=== PATIENT | female | born 1995 | race African-American/Black ===

== ENCOUNTER 2016-10-07 15:57 | Emergency (ER) | payer MEDICAID, OTHER ==
[~2016-10-07] VITALS: Ht 157.5 cm; Wt 63.5 kg
[2016-10-07 16:16] VITALS: BP 120/67
[2016-10-07 18:00] LABS: Basophils # (auto) 0 uL; Basophils % (auto) 0.2 % (0.0-2.0); DEFINITIVE VIEW TRANSMISSION; Eosinophils # (auto) 0 uL; Hematocrit 37.2 % (36.0-46.0); Hemoglobin 11.9 g/dL (12.2-16.2); Lymphocytes # (auto) 0.5 uL; Lymphocytes % (auto) 4.7 % (10.0-50.0); Mean Corpuscular Hemoglobin 26.6 pg (28.0-32.0); Mean Corpuscular Hgb Conc. 31.9 g/dL (32.0-36.0); Mean Corpuscular Volume 83.3 fL (80.0-100.0); Mean Platelet Volume 7.8 fL (7.4-10.4); Monocytes # (auto) 0.3 uL; Monocytes % (auto) 2.7 % (0.0-12.0); Neutrophils # (auto) 9.7 uL; Neutrophils % (auto) 92.4 % (37.0-80.0); Platelet Count (auto) 425 10^3/uL (140-450); Red Cell Distribution Width 12.7 % (11.6-16.0); White Blood Cell 10.5 10^3/uL (4.4-10.8)
[2016-10-07 18:24] LABS: Albumin 3.2 g/dL (3.4-5.0); BUN/Creatinine Ratio 12.7; Calcium 9.1 mg/dL (8.5-10.1); Potassium 3.3 mmol/L (3.5-5.1)
[2016-10-07 18:27] LABS: Bilirubin, Total 0.5 mg/dL (0.2-1.0); Total Protein 7.9 g/dL (6.4-8.2)
== END 2016-10-07 19:10 | disposition left against medical advice (07) ==
LOC: ER 15:57
DX: R10.9 Unspecified abdominal pain (principal); R53.1 Weakness; Z53.21 Procedure and treatment not carried out due to patient leaving prior to being seen by health care provider
CPT/HCPCS: 36415; 80053; 85025

== ENCOUNTER 2017-05-24 08:28 | Emergency (ER) | payer MEDICAID ==
[~2017-05-24] VITALS: Ht 157.5 cm; Wt 57.6 kg
[2017-05-24 09:04] LABS: Urine RBC None Seen /hpf (0 - 4)
[2017-05-24 09:12] LABS: Basophils # (auto) 0 uL; Basophils % (auto) 0.3 % (0.0-2.0); Eosinophils # (auto) 0 uL; Hematocrit 38.7 % (36.0-46.0); Hemoglobin 13.1 g/dL (12.2-16.2); Lymphocytes # (auto) 1.5 uL; Lymphocytes % (auto) 24.4 % (10.0-50.0); Mean Corpuscular Hemoglobin 28.4 pg (28.0-32.0); Mean Corpuscular Hgb Conc. 33.9 g/dL (32.0-36.0); Mean Corpuscular Volume 83.8 fL (80.0-100.0); Mean Platelet Volume 7.1 fL (6.9-10.8); Monocytes # (auto) 0.5 uL; Monocytes % (auto) 7.7 % (0.0-12.0); Neutrophils # (auto) 4.2 uL; Neutrophils % (auto) 67.6 % (37.0-80.0); Nucleated Red Blood Cells % 0.2 %; Platelet Count (auto) 336 10^3/uL (140-450); Red Cell Distribution Width 13.2 % (11.8-14.3); White Blood Cell 6.2 10^3/uL (4.4-10.8)
[2017-05-24 09:26] LABS: Urine Bilirubin Negative (Negative); Urine Blood Negative /uL (Negative); Urine Color Yellow (Yellow); Urine Glucose Normal (Normal); Urine Ketone 2+ (Negative); Urine Mucus FEW (None Seen); Urine Nitrite Negative (Negative); Urine Squamous Epithelial Cell FEW /hpf (<5); Urine Urobilinogen Normal (Negative)
[2017-05-24 09:34] LABS: Albumin 4.5 g/dL (3.4-5.0); BUN/Creatinine Ratio 18.2; Calcium 9.8 mg/dL (8.5-10.1); Potassium 3.4 mmol/L (3.5-5.1)
[2017-05-24 09:36] LABS: Bilirubin, Total 0.6 mg/dL (0.2-1.0); Total Protein 8.1 g/dL (6.4-8.2)
[2017-05-24] MEDS ORDERED: SODIUM CHLORIDE 0.9% 1,000 ML IV ONE ×2 (10:10→10:15)
[2017-05-24] MEDS ORDERED: IOHEXOL 300 MG/ML 100ML BOTTLE IJ ONE (10:13)
[2017-05-24] MEDS ORDERED: ONDANSETRON HCL 4 MG/2 ML VIAL IV ONE (10:15)
[2017-05-24 11:09] VITALS: BP 117/81
[2017-05-24] MEDS ORDERED: POTASSIUM CHL 10% (20 MEQ/15ML) 15ml ORAL SOLN PO ONE (11:30)
== END 2017-05-24 14:34 | disposition home or self-care (01) ==
LOC: ER 08:28
DX: R10.13 Epigastric pain (principal); R11.2 Nausea with vomiting, unspecified
CPT/HCPCS: 36415; 74177; 80053; 81001; 81025; 84702; 85025; 96361; 96374; 99285; J2405; Q9967

== ENCOUNTER 2019-02-01 00:55 | Emergency (ER) | payer MEDICAID ==
[~2019-02-01] VITALS: Ht 160 cm; Wt 65.8 kg
[2019-02-01 01:14] VITALS: BP 113/77
[2019-02-01] MEDS ORDERED: IBUPROFEN 600 MG TAB PO ONE (04:15)
== END 2019-02-01 04:45 | disposition home or self-care (01) ==
LOC: ER 00:56
DX: M62.838 Other muscle spasm (principal); M54.2 Cervicalgia; M25.532 Pain in left wrist; M54.6 Pain in thoracic spine; V49.49XA Driver injured in collision with other motor vehicles in traffic accident, initial encounter; Y93.89 Activity, other specified; Y99.8 Other external cause status; Y92.488 Other paved roadways as the place of occurrence of the external cause
CPT/HCPCS: 29125; 71111; 72040

== ENCOUNTER 2019-08-12 11:59 | Emergency (ER) | payer MEDICAID ==
[~2019-08-12] VITALS: Ht 157.5 cm; Wt 61.2 kg
[2019-08-12] MEDS ORDERED: ONDANSETRON ODT 4 MG TAB PO ONE ×2 (16:54→17:00)
[2019-08-12 17:23] VITALS: BP 103/73
== END 2019-08-12 17:24 | disposition left against medical advice (07) ==
LOC: ER 12:16
DX: G43.909 Migraine, unspecified, not intractable, without status migrainosus (principal)
CPT/HCPCS: 99283; Q0162

== ENCOUNTER 2024-11-28 17:19 | Inpatient (IN) | payer MEDICAID, OTHER ==
[~2024-11-28] VITALS: Ht 160 cm; Wt 86.1 kg
[2024-11-28] MEDS: ACETAMINOPHEN 325 MG TAB PO ONE ×2 (17:39→17:43)
--- NOTE | 2024-11-28 17:42 | ED.PDOC ---
Musculoskeletal HPI Comments HPI: 29F started w/ symptoms of N/V, LANDEROS, lower back pain which radiates to the bilateral legs and assumes that it may be due from her having to sit in the car for 8 hours. Pt notes on having a fever today of 100.7 PMHx: Migraine SHx: No Known [place] HPI: Poor Historian. 29-year-old female presents to emergency depart for evaluation of bilateral lumbosacral low back pain that radiates to bilateral lower extremity without any focal deficits or numbness or tingling. 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 She had the pain which was associated with the episode of nausea and vomiting nonbilious nonbloody. Today she noticed that she is febrile. Denies any sick contacts. She does have history of migraines. D enies any active fall or trauma or injury. Past Medical History: Migraines Past Surgical History: REVIEW OF SYSTEMS: CONSTITUTIONAL: Denies acute: , diaphoresis, chills, generalized weakness. HEAD: Denies acute: headache, photophobia Eyes: Denies acute: Double vision, vision loss, eye pain, eye discharge. EARS: Denies acute: tinnitus, hearing loss, ear discharge, ear pain, THROAT: Denies acute: sore throat, swelling, difficulty swallowing , pain with swallowing, change in voice. NECK: Denies acute: neck pain, neck swelling, stiff neck. HEART: Denies acute : chest pain, palpitations, LUNGS: Denies acute: SOB, wheezing, cough, hemoptysis ABDOMEN: Denies acute: abdominal pain, diarrhea, melena , hematemesis, hematochezia SKIN: Denies acute: rash, redness, lesions, itchiness. EXTREMITIES: Denies acute: calf pain, numbness, tingling, weakness, Neuro: Denies acute: focal neurological deficit, motor or sensory focal neurological deficit, tremors, seizure like activity, confusion, dizziness, change in mental status, loss of bowel or bladder function, cauda equina like symptoms. : Denies acute: dysuria, hematuria, flank pain, increase in urinary frequency. PSYCH: Denies acute: hallucination, suicidal ideation, homicidal ideation. FEMALE: Denies acute: abnormal vaginal bleeding, foul odor, unusual discharge. PHYSICAL EXAM: General: ---mild-----acute distress, awake and alert. Head: normocephalic, atraumatic. Neck: supple, trachea is midline, no swelling. Throat: Normal phonation. Eyes:, no erythema, no purulent discharge, no proptosis, no icterus. Heart: regular rate, regular rhythm, no significant murmur appreciated. Lungs: no apparent respiratory distress, Able to speak in full sentences. No wheezing, no rhonchi, no crackles. No stridors Clear to auscultation bilaterally. Abdomen: non tender to palpation, non distended, soft, no guarding, no rebound, + bowel sounds. Neuro: Awake, Alert, oriented to name, self, situation, follows commands GCS=15. Speech is normal. Skin: no petechia, no purpura, no cyanosis, non-pale, not jaundice. Lower extremities: --no - Pitting edema no deformity, no focal swelling, no calf TTP. Makes eye contact. moves all four extremities. Face: no apparent facial droop. No CVA tenderness to percussion bilaterally. Ambulating in the ED independently. Evaluation of the area of pain in her back. Patient points to her bilateral belt distribution in the lumbosacral region in the upper buttock area. No focal deformity or swelling on exam. No nuchal rigidity, Kernig's sign, Brudzinski's sign, no meningeal signs. ED COURSE: Chief Complaint: Lower Extremity Time Seen by MD: 17:35 Primary Care Provider: NONE Reviewed Notes: Nurses Notes, Allergies Allergies: Coded Allergies: NO KNOWN ALLERGIES (Unverified , 10/07/16) Home Meds Active Scripts Nitrofurantoin Monohydrate Mac (Macrobid) 100 Mg Cap, 100 MG PO BID for 7 Days, #14 CAP Prov:SYDNEY WASHBURN DO 11/28/24 Information Source: Patient Location: Bilateral Past Medical History PAST MEDICAL HISTORY: Denies Past Medical History (Other): Migraine Surgical History: Denies all surgeries HAIR COLORIST History: No Pertinent HAIR COLORIST History Family History Family History: Reviewed,noncontributory to illness, Unknown Family History (Other): Mother has history of Migraine Social History Smoker: Non-Smoker Alcohol: Denies ETOH Use Drugs: Denies Drug Use Lives In: Home Was a procedure done? Was a procedure done?: No Differential Diagnosis EXT Differential Diagnosis: Other (DDX INCLUDED BUT NOT LIMITED TO CAUDA EQUINA SYNDROME, LUMBAR RADICULOPATHY, ARTHRITIS, DISK HERNIATION, SCIATICA, MUSCLE STRAIN, EPIDURAL ABSCESS, TRANSVERSE MYELITIS. CORD COMPRESSION, SPINAL FORAMINAL STENOSIS, SPINAL FRACTURES, SPONDYLOSIS, CENTRAL CANAL STENOSIS, TRAUMA, MUSCLE SPRAIN/STRAIN, ANEURYSM/DISSECTION, KIDNEY STONES, SHINGLES, ARTHRITIS, GUILLAN BARRE, NEOPLASM.) X-Ray, Labs, Meds, VS Vital Signs Date Time Temp Pulse Resp B/P (MAP) Pulse Ox O2 Delivery O2 Flow Rate FiO2 11/29/24 07:25 98.0 73 16 117/77 (90) 99 98.0 11/29/24 04:22 98.8 11/29/24 04:20 98.8 78 16 134/72 (92) 98 98.8 11/29/24 00:46 100.5 88 16 136/73 (94) 97 100.5 11/28/24 17:39 100.7 11/28/24 17:30 100.7 20 20 130/79 (96) 97 100.7 Lab Test 11/28/24 17:51 11/28/24 17:30 Range/Units White Blood Count 3.9 L 4.4-10.8 10^3/uL Red Blood Count 4.85 4.0-5.20 10^6/uL Hemoglobin 13.0 12.2-16.2 g/dL Hematocrit 39.7 36.0-46.0 % Mean Corpuscular Volume 82.0 80.0-100.0 fL Mean Corpuscular Hemoglobin 26.8 L 28.0-32.0 pg Mean Corpuscular Hemoglobin Concent 32.7 32.0-36.0 g/dL Red Cell Distribution Width 13.6 11.8-14.3 % Platelet Count 288 140-450 10^3/uL Mean Platelet Volume 7.7 6.9-10.8 fL Neutrophils (%) (Auto) 37.0-80.0 % Lymphocytes (%) (Auto) 10.0-50.0 % Monocytes (%) (Auto) 0.0-12.0 % Basophils (%) (Auto) 0.0-2.0 % Neutrophils # (Auto) 1.6-8.6 10 ^3/uL Lymphocytes # (Auto) 0.4-5.4 10 ^3/uL Monocytes # (Auto) 0-1.3 10 ^3/uL Differential Total Cells Counted 100.0 100 Neutrophils % (Manual) 64 37.0-80.0 Band Neutrophils % (Manual) 1 Lymphocytes % (Manual) 14 10.0-50.0 Monocytes % (Manual) 21 H 0-12 Eosinophils % (Manual) 0 0-7 Basophils % (Manual) 0 0.0-2.0 Metamyelocytes % (manual) 0 Myelocytes % (Manual) 0 Promyelocytes % (Manual) 0 Blast Cells % (Manual) 0 Reactive Lymphocytes 0 Platelet Estimate Adequate Red Blood Cell Morphology Normal Erythrocyte Sedimentation Rate 15 0-20 mm/hr Sodium Level 135 L 136-145 mmol/L Potassium Level 3.6 3.5-5.1 mmol/L Chloride Level 104 98-107 mmol/L Carbon Dioxide Level 23 20-31 mmol/L Anion Gap 8 5-15 Blood Urea Nitrogen 11 9-23 mg/dL Creatinine 0.85 0.550-1.02 mg/dL Glomerular Filtration Rate Calc 94 >90 mL/min BUN/Creatinine Ratio 12.9 10.0-20.0 Serum Glucose 90 74-106 mg/dL Lactic Acid Level 1.1 0.4-2.0 mmol/L Calcium Level 10.5 H 8.7-10.4 mg/dL Magnesium Level 2.0 1.6-2.6 mg/dL Total Bilirubin 0.3 0.2-1.0 mg/dL Aspartate Amino Transferase (AST) 13 13-40 U/L Alanine Aminotransferase (ALT) 12 7-40 U/L Alkaline Phosphatase 76 46-116 U/L Creatine Kinase 115 34-145 U/L C-Reactive Protein High Sensitivity 0.70 <1.0 mg/dL Total Protein 8.7 H 5.7-8.2 g/dL Albumin 5.4 H 3.2-4.8 g/dL Urine Color Yellow Yellow Urine Clarity Turbid H Clear Urine pH 6.0 5.0-9.0 Urine Specific [place] 1.037 H 1.001-1.035 Urine Protein 1+ H Negative Urine Ketones 2+ H Negative Urine Blood 3+ H Negative /uL Urine Nitrite Negative Negative Urine Bilirubin Negative Negative Urine Urobilinogen Normal Negative mg/dL Urine Leukocyte Esterase Negative Negative /uL Urine RBC 27 0 - 4 /hpf Urine Microscopic WBC 6 H 0-5 /HPF Urine Squamous Epithelial Cells Few <5 /hpf Urine Bacteria Few H None Seen /hpf Urine Mucus Few None Seen Urine Glucose Normal Normal mg/dL Urine Test Negative Negative Microbiology Date/Time Source Procedure Growth Status 11/28/24 17:51 Blood Blood Culture - Preliminary NO GROWTH AFTER 24 HOURS OF INCUBATION. Resulted 11/28/24 17:40 Blood Blood Culture - Preliminary NO GROWTH AFTER 24 HOURS OF INCUBATION. Resulted Current Medications Medications (Trade) Dose Ordered Sig/Tabitha Route Start Time Stop Time Status Last Admin Sodium Chloride 1,000 ml @ 1,000 mls/hr Q1H ONCE IV 11/29/24 01:00 11/29/24 01:59 DC 11/29/24 01:00 Time of 1ST Reevaluation: 18:05 Reevaluation 1ST: Unchanged Patient Education/Counseling: Diagnosis, Treatment Family Education/Counseling: No Family Present Comments Patient refused all swabs for influenza and COVID. Patient presented with the above HPI.----low back pain and fever--workup was ini tiated. patient was found with the above mentioned diagnosis. the following medications were ordered: please refer to order lists of meds and tests obtained by myself Dr. Washburn. Patient ED course and VS have been stabilized. Patient has been reassessed in the ED and remained in a stable condition. Pertinent incidental findings were discussed with the patient and/or family. Patient/family voices understanding and is agreeable with plan. Patient has been observed in the ED adequate length of time to insure improvement/stability. Escalation of care considered: Consideration of escalation to observation or admission Patient Was found with UTI. Antibiotics initiated. Patient was ADMITTED to the medicine team for further evaluation and treatment of their presentation. All the reports of any imaging studies that were ordered by myself were reviewed by myself. Departure 1 Departure Time of Disposition: 22:59 Impression: Primary Impression: Low back pain Additional Impressions: UTI (urinary tract infection) Radiculopathy Fever Disposition: ADMITTED INPATIENT Admit to: Tele Condition: Guarded Additional Instructions: e-Prescriptions Nitrofurantoin Monohydrate Mac (Macrobid) 100 Mg Cap 100 MG PO BID for 7 Days, #14 CAP Prov: SYDNEY WASHBURN DO 11/28/24 Discharged With: Self Critical Care Note Critical Care Time?: Yes (35 min-critical care time only) I personally scribed for SYDNEY WASHBURN DO ([email or web address]) on 11/28/24 at 17:42. Electronically submitted by Jaswinder Juarez ([email or web address]). SYDNEY WASHBURN DO Nov 28, 2024 17:42
[2024-11-28] MEDS: ONDANSETRON HCL 4 MG/2 ML VIAL IV ONE (17:45)
[2024-11-28] MEDS: SODIUM CHLORIDE 0.9% 1,000 ML IV ONE (17:45)
[2024-11-28 18:20] LABS: Mean Corpuscular Hgb Conc. 32.7 g/dL (32.0-36.0)
[2024-11-28 18:22] LABS: Hematocrit 39.7 % (36.0-46.0); Mean Corpuscular Hemoglobin 26.8 pg (28.0-32.0); Platelet Count (auto) 288 10^3/uL (140-450); Red Blood Cells 4.85 10^6/uL (4.0-5.20); Red Cell Distribution Width 13.6 % (11.8-14.3); White Blood Cell 3.9 10^3/uL (4.4-10.8)
[2024-11-28 18:36] LABS: Alkaline Phosphatase 76 U/L (46-116); Anion Gap 8 (5-15); Aspartate Aminotransferase 13 U/L (13-40); BUN/Creatinine Ratio 12.9 (10.0-20.0); Blood Urea Nitrogen 11 mg/dL (9-23); Carbon Dioxide 23 mmol/L (20-31); Chloride 104 mmol/L (98-107); Creatine Kinase IFCC 115 U/L (34-145); Glucose 90 mg/dL (74-106); Potassium 3.6 mmol/L (3.5-5.1)
[2024-11-28 18:37] LABS: Bilirubin, Total 0.3 mg/dL (0.2-1.0)
[2024-11-28 18:57] LABS: Basophils % (manual) 0 (0.0-2.0); Blast Cells 0; Eosinophils % (manual) 0 (0-7); Metamyelocytes % 0; Myelocytes % 0; Promyelocytes % 0; Reactive Lymphocytes 0
[2024-11-28 19:04] LABS: Albumin 5.4 g/dL (3.2-4.8); Calcium 10.5 mg/dL (8.7-10.4); Sodium 135 mmol/L (136-145); Total Protein 8.7 g/dL (5.7-8.2)
[2024-11-28 19:19] LABS: Urine Bacteria FEW /hpf (None Seen); Urine Blood 3+ /uL (Negative); Urine Clarity Turbid (Clear); Urine Color Yellow (Yellow); Urine Mucus FEW (None Seen); Urine Protein, UAD 1+ (Negative); Urine Specific Gravity 1.037 (1.001-1.035); Urine Squamous Epithelial Cell FEW /hpf (<5); Urine Urobilinogen Normal (Negative); Urine WBC 6 /HPF (0-5)
[2024-11-28 19:23] LABS: Alanine Aminotransferase 12 U/L (7-40)
[2024-11-28 19:43] LABS: Erythrocyte Sedimentation Rate 15 mm/hr (0-20)
--- NOTE | 2024-11-28 19:48 | DVH ---
CHEST RADIOGRAPH Indication: fever Technique: Single frontal view of the chest was obtained Comparison: None FINDINGS: Lines and Tubes: None Lungs: No focal consolidation. Pleura: No effusion. No pneumothorax. Cardiomediastinal contours: Unremarkable Bones: No acute osseous abnormality. IMPRESSION: 1. No acute cardiopulmonary disease. HS:Y
[2024-11-28 19:59] LABS: Band Neutrophils % (manual) 1; Lymphocytes % (manual) 14 (10.0-50.0); Monocytes % (manual) 21 (0-12); Platelet Estimate Adequate; RBC Morphology Normal
[2024-11-28] MEDS ORDERED: NITR-87 PO (23:00)
[2024-11-29] MEDS: KETOROLAC TROMETH 30 MG/ML 1ML VIAL IV ONE (00:52)
[2024-11-29] MEDS: cefTRIAXone 1GM/50ML D5W 50 ML IV ONE (00:52)
[2024-11-29] MEDS: predniSONE 20 MG TAB PO ONE (00:53)
[2024-11-29] MEDS: SODIUM CHLORIDE 0.9% 1,000 ML IV ONE (01:00)
[2024-11-29] MEDS: IOHEXOL 300 MG/ML 100ML BOTTLE IJ ONE (01:11)
--- NOTE | 2024-11-29 01:57 | DVH ---
CLINICAL HISTORY: low back pain, TECHNIQUE: CT of the abdomen and pelvis was performed with intravenous contrast. This exam was perfor med according to our departmental dose optimization program. Up-to-date CT equipment and radiation do se reduction techniques are utilized as appropriate. 100 ML Omnipaque 300 injected CTDIVol: 12.18 mGy DLP: 6084.28 mGy-cm WID: COMPARISON: None FINDINGS: Lower Thorax: Small hiatal hernia. Otherwise unremarkable Liver and Biliary system: Unremarkable. Spleen: Unremarkable. Adrenal Glands and Kidneys: Unremarkable adrenal glands. Tiny hypodensity in the in both kidneys whi ch are too small to characterize though may reflect cysts. No hydronephrosis or nephrolithiasis. Pancreas and Retroperitoneum: Unremarkable. Aorta and Major Vessels: Unremarkable. Bowel, Mesentery and Peritoneal space: Normal appendix. Normal caliber small and large bowel. No free air or fluid collection. Pelvis: Unremarkable. Abdominal wall and Osseous Structures: No destructive osseous lesion. IMPRESSION: 1. No acute abnormality. 2. Small hiatal hernia.
[2024-11-29] MEDS ORDERED: ACETAMINOPHEN 325 MG TAB PO PRN (07:45)
[2024-11-29] MEDS ORDERED: ONDANSETRON HCL 4 MG/2 ML VIAL IV PRN (07:45)
--- NOTE | 2024-11-29 08:09 | DVHHP2 ---
History of Present Illness Reason for Visit: Back pain History of Present Illness Tess Douglas is a 29-year-old female with past medical history of migraine who presents to the ED with back pain, nausea, vomiting, headache, and bilateral lower extremity pain x2 days. 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 She states that the back pain is similar to sciatic pain that she had before. Patient denies any chest pain, shortness of breath, abdominal pain, diarrhea, recent trauma or injury, recent sick contacts, recent travels, lightheadedness, weakness, or dizziness. Past Medical History Migraine Past Surgical History: None Family History: Cancer, Other (Mom with lung cancer) Smoke: No ALCOHOL: none Drugs: Marijuana Lives: with Family Domestic Violence: Neg Review of Systems Musculoskeletal: back pain, leg pain Allergies: Coded Allergies: NO KNOWN ALLERGIES (Unverified , 10/07/16) Medications Current Medications Medications Dose Ordered Sig/Tabitha Route Start Time Stop Time Status Last Admin Dose Admin Ceftriaxone Sodium 50 ml @ 100 mls/hr DAILY@09 IV 11/29/24 09:00 UNV Acetaminophen/ Hydrocodone Bitart 1 tab Q4HP PRN PO 11/29/24 07:45 UNV Ondansetron HCl 4 mg Q4HP PRN IV 11/29/24 07:45 UNV Acetaminophen 650 mg Q6HP PRN PO 11/29/24 07:45 UNV Morphine Sulfate 2 mg Q4HPRN PRN IV 11/29/24 07:45 UNV Exam Vital Signs Vital Signs Date Time Temp Pulse Resp B/P (MAP) Pulse Ox O2 Delivery O2 Flow Rate FiO2 11/29/24 07:25 98.0 73 16 117/77 (90) 99 98.0 General Appearance: Alert, Oriented X3, Cooperative, No acute distress HEENT: Atraumatic, PERRLA, EOMI, Mucous membr. moist/pink Respiratory: Clear to auscultation, Normal air movement Cardiovascular: Regular rate, Normal S1, Normal S2, No murmurs Abdominal: Normal bowel sounds, Soft, No tenderness, No hepatospenomegaly, No masses Extremities: No clubbing, No cyanosis, No edema, Normal pulses, No tenderness/swelling Skin: No rashes, No breakdown, No significant lesion Neuro: Normal gait, Normal speech, Strength at 5/5 X4 ext, Normal tone, Sensation intact Psych/Mental Status: Mental status NL, Mood NL Labs/Xrays Labs Test 11/28/24 17:51 11/28/24 17:30 Range/Units White Blood Count 3.9 L 4.4-10.8 10^3/uL Red Blood Count 4.85 4.0-5.20 10^6/uL Hemoglobin 13.0 12.2-16.2 g/dL Hematocrit 39.7 36.0-46.0 % Mean Corpuscular Volume 82.0 80.0-100.0 fL Mean Corpuscular Hemoglobin 26.8 L 28.0-32.0 pg Mean Corpuscular Hemoglobin Concent 32.7 32.0-36.0 g/dL Red Cell Distribution Width 13.6 11.8-14.3 % Platelet Count 288 140-450 10^3/uL Mean Platelet Volume 7.7 6.9-10.8 fL Neutrophils (%) (Auto) 37.0-80.0 % Lymphocytes (%) (Auto) 10.0-50.0 % Monocytes (%) (Auto) 0.0-12.0 % Basophils (%) (Auto) 0.0-2.0 % Neutrophils # (Auto) 1.6-8.6 10 ^3/uL Lymphocytes # (Auto) 0.4-5.4 10 ^3/uL Monocytes # (Auto) 0-1.3 10 ^3/uL Differential Total Cells Counted 100.0 100 Neutrophils % (Manual) 64 37.0-80.0 Band Neutrophils % (Manual) 1 Lymphocytes % (Manual) 14 10.0-50.0 Monocytes % (Manual) 21 H 0-12 Eosinophils % (Manual) 0 0-7 Basophils % (Manual) 0 0.0-2.0 Metamyelocytes % (manual) 0 Myelocytes % (Manual) 0 Promyelocytes % (Manual) 0 Blast Cells % (Manual) 0 Reactive Lymphocytes 0 Platelet Estimate Adequate Red Blood Cell Morphology Normal Erythrocyte Sedimentation Rate 15 0-20 mm/hr Sodium Level 135 L 136-145 mmol/L Potassium Level 3.6 3.5-5.1 mmol/L Chloride Level 104 98-107 mmol/L Carbon Dioxide Level 23 20-31 mmol/L Anion Gap 8 5-15 Blood Urea Nitrogen 11 9-23 mg/dL Creatinine 0.85 0.550-1.02 mg/dL Glomerular Filtration Rate Calc 94 >90 mL/min BUN/Creatinine Ratio 12.9 10.0-20.0 Serum Glucose 90 74-106 mg/dL Lactic Acid Level 1.1 0.4-2.0 mmol/L Calcium Level 10.5 H 8.7-10.4 mg/dL Magnesium Level 2.0 1.6-2.6 mg/dL Total Bilirubin 0.3 0.2-1.0 mg/dL Aspartate Amino Transferase (AST) 13 13-40 U/L Alanine Aminotransferase (ALT) 12 7-40 U/L Alkaline Phosphatase 76 46-116 U/L Creatine Kinase 115 34-145 U/L Total Protein 8.7 H 5.7-8.2 g/dL Albumin 5.4 H 3.2-4.8 g/dL Urine Color Yellow Yellow Urine Clarity Turbid H Clear Urine pH 6.0 5.0-9.0 Urine Specific [place] 1.037 H 1.001-1.035 Urine Protein 1+ H Negative Urine Ketones 2+ H Negative Urine Blood 3+ H Negative /uL Urine Nitrite Negative Negative Urine Bilirubin Negative Negative Urine Urobilinogen Normal Negative mg/dL Urine Leukocyte Esterase Negative Negative /uL Urine RBC 27 0 - 4 /hpf Urine Microscopic WBC 6 H 0-5 /HPF Urine Squamous Epithelial Cells Few <5 /hpf Urine Bacteria Few H None Seen /hpf Urine Mucus Few None Seen Urine Glucose Normal Normal mg/dL Urine Test Negative Negative MRI LUMBAR SPINE WO CONTRAST INDICATION: r/o spinal stenosis : 29 old Female r/o spinal stenosis EXAM DATE: 11/29/2024 01:54 PM COMPARISON: 11/29/24 PROCEDURE: Using a 1.5 Cee scanner, multisequence multiplanar imaging of the lumbar spine was obtained. FINDINGS: There are five lumbar vertebral segments. The lumbar spine shows anatomic alignment with preservation of vertebral body heights. The marrow signal is homogeneous. The intervertebral discs appear normal in height and signal. The distal spinal cord is normal in signal and morphology and the conus medullaris terminates at . The paraspinal soft tissues are normal. On axial images: the posterior disc margin, thecal sac, neural foramina, and facet joints appear normal. IMPRESSION: Minimal L5-S1 disc space narrowing; otherwise normal MRI findings of the lumbar spine. INDICATION: back pain COMPARISON: None TECHNIQUE: 2 views of the lumbar spine were obtained. FINDINGS: The lumbar vertebral alignment is normal. The intervertebral disc spaces are well-maintained. No significant facet arthropathy is noted. No acute fracture, vertebral compression deformity or aggressive osseous lesions. The paravertebral soft tissues are grossly unremarkable. IMPRESSION: No acute fracture. US BiLat Lower DVT HISTORY: pain COMPARISON: None TECHNIQUE: Duplex Doppler evaluation of the deep venous system of the lower extremity from the common femoral veins, superficial femoral vein, great saphenous vein, deep femoral vein, popliteal vein, and calf veins, including color Doppler and spectral/pulsed waveform analysis, was performed. FINDINGS: Right: - Common femoral vein: Compressible - Deep femoral vein: Compressible - Femoral vein: Compressible - Popliteal vein: Compressible - Posterior tibial vein: Waveforms present - Other: Nothing Left: - Common femoral vein: Compressible - Deep femoral vein: Compressible - Femoral vein: Compressible - Popliteal vein: Compressible - Posterior tibial vein: Waveforms present - Other: Nothing IMPRESSION: No right or left lower extremity deep venous thrombosis. CLINICAL HISTORY: low back pain, TECHNIQUE: CT of the abdomen and pelvis was performed with intravenous contrast. This exam was performed according to our departmental dose optimization program. Up-to-date CT equipment and radiation dose reduction techniques are utilized as appropriate. 100 ML Omnipaque 300 injected CTDIVol: 12.18 mGy DLP: 6084.28 mGy-cm WID: COMPARISON: None FINDINGS: Lower Thorax: Small hiatal hernia. Otherwise unremarkable Liver and Biliary system: Unremarkable. Spleen: Unremarkable. Adrenal Glands and Kidneys: Unremarkable adrenal glands. Tiny hypodensity in the in both kidneys which are too small to characterize though may reflect cysts. No hydronephrosis or nephrolithiasis. Pancreas and Retroperitoneum: Unremarkable. Aorta and Major Vessels: Unremarkable. Bowel, Mesentery and Peritoneal space: Normal appendix. Normal caliber small and large bowel. No free air or fluid collection. Pelvis: Unremarkable. Abdominal wall and Osseous Structures: No destructive osseous lesion. IMPRESSION: 1. No acute abnormality. 2. Small hiatal hernia. CHEST RADIOGRAPH Indication: fever Technique: Single frontal view of the chest was obtained Comparison: None FINDINGS: Lines and Tubes: None Lungs: No focal consolidation. Pleura: No effusion. No pneumothorax. Cardiomediastinal contours: Unremarkable Bones: No acute osseous abnormality. IMPRESSION: 1. No acute cardiopulmonary disease. Assessment/Plan Assessment/Plan Assessment Intractable back pain Intractable nausea vomiting and headache Small hiatal hernia History of migraine Plan Admit to [facility] Chest x-ray noted HCG UA NS 2 L given ED Pain management Antiemetics IV antibiotics-ceftriaxone Antipyretics CT abdomen pelvis Mag level CK Lactic level ESR CRP Ultrasound bilateral lower extremity venous SCDs X-ray lumbar spine MRI lumbar spine Per patient she does not take medications at home DVT prophylaxis-SCDs PUD prophylaxis-not indicated no history of GERD or GI bleed Discussed plan of care with patient nurse Plan discussed with: Patient My Orders Orders - SHANITA FLOREZP Procedure Category Date Status Time Ceftriaxone 1gm/50ml PHA 11/29/24 Logged D5w (Rocephin) 09:00 Admit ADMIT 11/29/24 Transmitted 07:42 Allergies DAGOBERTO 11/29/24 In Process 07:42 Code Status CODE 11/29/24 Transmitted 07:42 Hydrocodone-Acet PHA 11/29/24 Logged 5/325mg Tab ([place] 07:45 Ondansetron Hcl PHA 11/29/24 Logged (Zofran) 07:45 Complete Blood Count LAB 11/30/24 Verified 04:00 Comprehensive LAB 11/30/24 Verified Metabolic Panel 04:00 Cardiac DIET 11/29/24 Transmitted Diet-2gna,Lofat,Lochol Breakfast Acetaminophen Tablet PHA 11/29/24 Logged (Tylenol Tablet) 07:45 Morphine Sulfate PHA 11/29/24 Logged Injection 07:45 Sequential DAGOBERTO 11/29/24 In Process Compression Device Date of Service: Nov 29, 2024 Billing Provider: SHANITA FLOREZ Common Visit Codes: 44845-[id number] INP/OBS CARE (HIGH) SHANITA FLOREZ Nov 29, 2024 08:09
--- NOTE | 2024-11-29 08:36 | DVH ---
INDICATION: back pain COMPARISON: None TECHNIQUE: 2 views of the lumbar spine were obtained. FINDINGS: The lumbar vertebral alignment is normal. The intervertebral disc spaces are well-maintained. No significant facet arthropathy is noted. No acute fracture, vertebral compression deformity or aggressive osseous lesions. The paravertebral soft tissues are grossly unremarkable. IMPRESSION: No acute fracture.
[2024-11-29] MEDS: MORPHINE SULFATE INJ 2 MG/ml SYRG IV PRN (08:41)
--- NOTE | 2024-11-29 08:48 | DVH ---
US BiLat Lower DVT HISTORY: pain COMPARISON: None TECHNIQUE: Duplex Doppler evaluation of the deep venous system of the lower extremity from the common femoral veins, superficial femoral vein, great saphenous vein, deep femoral vein, popliteal vein, an d calf veins, including color Doppler and spectral/pulsed waveform analysis, was performed. FINDINGS: Right: - Common femoral vein: Compressible - Deep femoral vein: Compressible - Femoral vein: Compressible - Popliteal vein: Compressible - Posterior tibial vein: Waveforms present - Other: Nothing Left: - Common femoral vein: Compressible - Deep femoral vein: Compressible - Femoral vein: Compressible - Popliteal vein: Compressible - Posterior tibial vein: Waveforms present - Other: Nothing IMPRESSION: No right or left lower extremity deep venous thrombosis.
[2024-11-29] MEDS: cefTRIAXone 1GM/50ML D5W 50 ML IV SCH (09:27)
[2024-11-29] MEDS: HYDROcodone-ACET 5/325MG TAB PO PRN (11:56)
[2024-11-29 13:05] VITALS: BP 118/68; PULSE 67; RESP 16; TEMP 98.6; O2SAT 98
[2024-11-29 13:46] VITALS: BP 118/68; PULSE 67; RESP 16; TEMP 98.6; O2SAT 98
--- NOTE | 2024-11-29 14:36 | DVH ---
MRI LUMBAR SPINE WO CONTRAST INDICATION: r/o spinal stenosis : 29 old Female r/o spinal stenosis EXAM DATE: 11/29/2024 01:54 PM COMPARISON: 11/29/24 PROCEDURE: Using a 1.5 Cee scanner, multisequence multiplanar imaging of the lumbar spine was obtai luzmaria. FINDINGS: There are five lumbar vertebral segments. The lumbar spine shows anatomic alignment with pr eservation of vertebral body heights. The marrow signal is homogeneous. The intervertebral discs appe ar normal in height and signal. The distal spinal cord is normal in signal and morphology and the con us medullaris terminates at . The paraspinal soft tissues are normal. On axial images: the posterior disc margin, thecal sac, neural foramina, and facet joints appear nor mal. IMPRESSION: Minimal L5-S1 disc space narrowing; otherwise normal MRI findings of the lumbar spine.
[2024-11-29] MEDS ORDERED: CYCLOBENZAPRINE HCL 10 MG TAB PO PRN (16:45)
[2024-11-29 17:02] VITALS: BP 122/76; PULSE 67; RESP 18; TEMP 98.3; O2SAT 100
[2024-11-29] MEDS: HYDROMORPHONE HCL 1 MG/ML INJ IV PRN (17:20)
[2024-11-29] MEDS: GABAPENTIN 100 MG CAP PO SCH (20:55)
[2024-11-29 21:00] VITALS: BP 143/107; PULSE 73; RESP 16; TEMP 98; O2SAT 99
[2024-11-29 21:35] VITALS: BP 117/78; PULSE 71; RESP 20; TEMP 98.6; O2SAT 97
[2024-11-30] VITALS (7 sets, daily range): BP systolic 108–132; BP diastolic 74–85; PULSE 70–90; RESP 16–20; TEMP 97.9–99.3; O2SAT 98–100
[2024-11-30 05:46] LABS: Hematocrit 34.3 % (36.0-46.0); Hemoglobin 11.5 g/dL (12.2-16.2); Mean Corpuscular Hemoglobin 27.4 pg (28.0-32.0); Mean Corpuscular Hgb Conc. 33.6 g/dL (32.0-36.0); Mean Corpuscular Volume 81.8 fL (80.0-100.0); Platelet Count (auto) 244 10^3/uL (140-450); Red Cell Distribution Width 13.7 % (11.8-14.3); White Blood Cell 3.9 10^3/uL (4.4-10.8)
[2024-11-30 05:52] LABS: Band Neutrophils % (manual) 0
[2024-11-30 05:53] LABS: Basophils % (manual) 0 (0.0-2.0); Blast Cells 0; Eosinophils % (manual) 0 (0-7); Metamyelocytes % 0; Myelocytes % 0; Promyelocytes % 0; Reactive Lymphocytes 0
[2024-11-30 06:21] LABS: Alanine Aminotransferase 10 U/L (7-40); Albumin 4.1 g/dL (3.2-4.8); Alkaline Phosphatase 59 U/L (46-116); Anion Gap 6 (5-15); Aspartate Aminotransferase 16 U/L (13-40); BUN/Creatinine Ratio 9.6 (10.0-20.0); Calcium 8.9 mg/dL (8.7-10.4); Carbon Dioxide 26 mmol/L (20-31); Chloride 104 mmol/L (98-107); Glucose 86 mg/dL (74-106); Sodium 136 mmol/L (136-145); Total Protein 6.8 g/dL (5.7-8.2)
[2024-11-30 06:27] LABS: Bilirubin, Total 0.2 mg/dL (0.2-1.0); Blood Urea Nitrogen 8 mg/dL (9-23); Potassium 3.5 mmol/L (3.5-5.1)
[2024-11-30 06:59] LABS: Lymphocytes % (manual) 76 (10.0-50.0); Monocytes % (manual) 11 (0-12)
[2024-11-30 07:00] LABS: Platelet Estimate Adequate
[2024-11-30] MEDS ORDERED: CYCL-611 PO (12:06)
[2024-11-30] MEDS ORDERED: PRED10TA PO (12:06)
[2024-11-30] MEDS ORDERED: HYDR-4902 PO (12:06)
[2024-11-30] MEDS ORDERED: GAB100C PO (12:06)
--- NOTE | 2024-11-30 12:12 | DVHDS2 ---
Discharge Summary Date of Admission Nov 29, 2024 at 07:42 Date of Discharge: Nov 30, 2024 Admitting Diagnosis Intractable back pain Intractable nausea vomiting and headache Small hiatal hernia History of migraine Labs/Diagnostic Data: Laboratory Results Test 11/30/24 05:17 11/28/24 17:51 11/28/24 17:30 White Blood Count 3.9 10^3/uL (4.4-10.8) Red Blood Count 4.20 10^6/uL (4.0-5.20) Hemoglobin 11.5 g/dL (12.2-16.2) Hematocrit 34.3 % (36.0-46.0) Mean Corpuscular Volume 81.8 fL (80.0-100.0) Mean Corpuscular Hemoglobin 27.4 pg (28.0-32.0) Mean Corpuscular Hemoglobin Concent 33.6 g/dL (32.0-36.0) Red Cell Distribution Width 13.7 % (11.8-14.3) Platelet Count 244 10^3/uL (140-450) Mean Platelet Volume 7.5 fL (6.9-10.8) Neutrophils (%) (Auto) % (37.0-80.0) Lymphocytes (%) (Auto) % (10.0-50.0) Monocytes (%) (Auto) % (0.0-12.0) Basophils (%) (Auto) % (0.0-2.0) Neutrophils # (Auto) 10 ^3/uL (1.6-8.6) Lymphocytes # (Auto) 10 ^3/uL (0.4-5.4) Monocytes # (Auto) 10 ^3/uL (0-1.3) Differential Total Cells Counted 100.0 (100) Neutrophils % (Manual) 13 (37.0-80.0) Band Neutrophils % (Manual) 0 Lymphocytes % (Manual) 76 (10.0-50.0) Monocytes % (Manual) 11 (0-12) Eosinophils % (Manual) 0 (0-7) Basophils % (Manual) 0 (0.0-2.0) Metamyelocytes % (manual) 0 Myelocytes % (Manual) 0 Promyelocytes % (Manual) 0 Blast Cells % (Manual) 0 Nucleated Red Blood Cells 1.0 % Reactive Lymphocytes 0 Platelet Estimate Adequate Sodium Level 136 mmol/L (136-145) Potassium Level 3.5 mmol/L (3.5-5.1) Chloride Level 104 mmol/L (98-107) Carbon Dioxide Level 26 mmol/L (20-31) Anion Gap 6 (5-15) Blood Urea Nitrogen 8 mg/dL (9-23) Creatinine 0.83 mg/dL (0.550-1.02) Glomerular Filtration Rate Calc 97 mL/min (>90) BUN/Creatinine Ratio 9.6 (10.0-20.0) Serum Glucose 86 mg/dL (74-106) Calcium Level 8.9 mg/dL (8.7-10.4) Total Bilirubin 0.2 mg/dL (0.2-1.0) Aspartate Amino Transferase (AST) 16 U/L (13-40) Alanine Aminotransferase (ALT) 10 U/L (7-40) Alkaline Phosphatase 59 U/L (46-116) Total Protein 6.8 g/dL (5.7-8.2) Albumin 4.1 g/dL (3.2-4.8) Red Blood Cell Morphology Normal Erythrocyte Sedimentation Rate 15 mm/hr (0-20) Lactic Acid Level 1.1 mmol/L (0.4-2.0) Magnesium Level 2.0 mg/dL (1.6-2.6) Creatine Kinase 115 U/L (34-145) C-Reactive Protein High Sensitivity 0.70 mg/dL (<1.0) Urine Color Yellow (Yellow) Urine Clarity Turbid (Clear) Urine pH 6.0 (5.0-9.0) Urine Specific [place] 1.037 (1.001-1.035) Urine Protein 1+ (Negative) Urine Ketones 2+ (Negative) Urine Blood 3+ /uL (Negative) Urine Nitrite Negative (Negative) Urine Bilirubin Negative (Negative) Urine Urobilinogen Normal mg/dL (Negative) Urine Leukocyte Esterase Negative /uL (Negative) Urine RBC 27 /hpf (0 - 4) Urine Microscopic WBC 6 /HPF (0-5) Urine Squamous Epithelial Cells Few /hpf (<5) Urine Bacteria Few /hpf (None Seen) Urine Mucus Few (None Seen) Urine Glucose Normal mg/dL (Normal) Urine Test Negative (Negative) Other Laboratory Tests 11/30/24 05:17 Brief Hx & Hospital Course: This is a 29 years old female who is obese and 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 She started experience severe back pain radiating to her back and her leg. The patient was admitted. MRI of the lumbar spine showed Minimal L5-S1 disc space narrowing; otherwise normal MRI findings of the lumbar spine. The patient was started on prednisone, pain medication, muscle relaxants. The patient is subsequently feel better. Back pain improved. I advised the patient not sitting too long in her car but can be get up and walk around if she can every 1 hour when she sits in the car. Advised the patient to follow up with primary care physician 1-2 weeks. If her back pain still the problem she should see a spine surgeon to evaluate as outpatient. Also recommend the patient to do stretching in physical therapy as needed. Follow up with primary care physician 1-2 weeks. Activity as tolerated. Diet per home diet. Also advised her to lose weight to help with the back pain. Physical exam: HEENT: Normocephalic atraumatic pupils equal react to light and accommodation. Extraocular muscles intact, conjunctiva pink, oropharynx moist, no thrush, no exudate. Lymphatic: No lymphadenopathy Cardiovascular exam: S1, S2 was heard. No murmurs, rubs, gallops Lung: Clear on auscultation bilaterally, no wheeze, rale, rhonchi. GI: Abdominal soft, nondistended, nontenderness, positive bowel sounds. Extremity: No crepitus, cyanosis, edema. Pedal pulses present bilateral. Full range of motion. Skin: Normal turgor, no rash. Psych: Alert, oriented x3. Neurology: No focal deficits, cranial nerve II to XII grossly intact. This medical document was created using an electronic medical record system with [employer] direct computerized dictation system. Although this document has been carefully reviewed, there may still be some phonetic and typographical errors. These areas are purely typographical due to imperfections of the software programs, and do not reflect any compromise in the patient's medical care. Condition at Discharge: Stable Final Diagnosis/Problems List Intractable back pain Intractable nausea vomiting and headache Small hiatal hernia History of migraine Discharge Disposition: Home Discharge Instruct/Medications Diet: Regular Activity: No Restrictions, As Tolerated Follow Up/Referral: pcp 1-2 weeks Medications: see med lists Discharge Statement: "Patient was advised to return to the ER or call 911 if any headaches, dizziness, shortness of breath, chest pain, abdominal pain, bleeding, fevers, or worsening of medical condition. Patient was counseled about treatment plan, medications, possible side effects, patientverbalized understanding. All questions were answered to the best of my ability. This discharge took greater then 30 minutes in planning, reviewing documentation, counseling the patient, and discussing with other team members." ASSESSMENT ASSESSMENT Assessment back pain Date of Service: Nov 30, 2024 Billing Provider: ELIGIO JACOBO MD Common Visit Codes: 53745-PGC/OBS DISCH DAY >30min ELIGIO JACOBO MD Nov 30, 2024 12:12
== END 2024-11-30 14:30 | disposition home or self-care (01) | DRG 347 ==
LOC: ER 17:19 → OVERFLOW 11-29 07:42 → ER 11-29 07:47 → EAST 11-29 21:35
PROVIDERS: ADMIT Internal Medicine; ATTEND Internal Medicine
DX: M54.17 Radiculopathy, lumbosacral region (principal); R65.10 Systemic inflammatory response syndrome (SIRS) of non-infectious origin without acute organ dysfunction; G43.909 Migraine, unspecified, not intractable, without status migrainosus; K44.9 Diaphragmatic hernia without obstruction or gangrene; N39.0 Urinary tract infection, site not specified; Z80.1 Family history of malignant neoplasm of trachea, bronchus and lung; Z79.899 Other long term (current) drug therapy
CPT/HCPCS: 36415; 71045; 72100; 72148; 74177; 80053; 81001; 81025; 82550; 83605; 83735; 85007; 85027; 85652; 86141; 87040; 93970; 96361; 96374; 99291; G0378; J1885